=== PATIENT | male | born 1965 | race Caucasian/White ===

== ENCOUNTER 2022-02-10 09:23 | Emergency (ER) | payer OTHER, SELFPAY ==
[2022-02-10 09:42] VITALS: BP 174/140; PULSE 76; RESP 18; TEMP 36.8; O2SAT 98; BMI 33.6
--- NOTE | 2022-02-10 09:55 | USCV_ITS ---
Rell Viveros Age: 56 Gender: M : 1965 Exam Date: 02/10/2022 10:41 Ordering Phys: Edilson Morales Technologist: Otoniel Louis [place] [facility] [place]: [place] PROCEDURES: The venous duplex Doppler examination of both lower extremities was performed in the standard fashion. The following venous structures were evaluated: common femoral vein, profunda vein, proximal portion of the greater saphenous vein, superficial femoral vein, and the popliteal vein. In addition, the posterior tibial and peroneal trunk were evaluated. FINDINGS: Normal 2-D Doppler and augmentation and compressibility throughout the lower extremity venous structures. Additional imaging through the proximal calf veins also reveals no thrombus. Limited evaluation of the greater saphenous vein is patent with no thrombus.. CONCLUSIONS No evidence of right lower extremity DVT. No evidence of left lower extremity DVT. Nathaniel Ennis MD (Electronically Signed) Final Date: 10 Feb 2022 16:09 S
--- NOTE | 2022-02-10 09:55 | USR_ITS ---
PROCEDURE INFORMATION: Exam: US Duplex Lower Extremity Arteries Exam date and time: 02/10/2022 10:50 AM Age: 56 years old Clinical indication: Pain; Leg, lower; Bilateral; Additional info: Bilateral leg pain. Worsens with ambulation TECHNIQUE: Imaging protocol: Real-time ultrasound scan of the arteries of the bilateral lower extremities with 2-D levin scale, color Doppler flow and spectral waveform analysis. Images documented and saved. COMPARISON: No relevant prior studies available. FINDINGS: Right common femoral artery: No occlusion or significant stenosis. Normal waveform. Right superficial femoral artery: No occlusion or significant stenosis. Normal waveform. Right popliteal artery: No occlusion or significant stenosis. Normal waveform. Right calf/foot arteries: No occlusion or significant stenosis in the visualized arteries. Normal waveforms. Dorsalis pedis artery is patent. Left common femoral artery: No occlusion or significant stenosis. Normal waveform. Left superficial femoral artery: No occlusion or significant stenosis. Normal waveform. Left popliteal artery: No occlusion or significant stenosis. Normal waveform. Left calf/foot arteries: No occlusion or significant stenosis in the visualized arteries. Normal waveforms. Dorsalis pedis artery is patent. US/CV arterial duplex [facility] [id number] IMPRESSION: No stenosis or occlusion.
--- NOTE | 2022-02-10 10:03 | W.ED.EXTPRO ---
Documented by User: [email or web address] Whyte 02/10/22 12:00 HPI - Extremity Problem General: Chief complaint: Extremity Injury, Lower Stated complaint: doc sent over for possible blood clots both legs Time Seen by Provider: 02/10/22 09:26 History of Present Illness: Patient is a 56-year-old male who comes to the ED with bilateral leg pain. Symptoms have been going on now for over 6 months. He states his bilateral leg pain worsens when he is up and ambulating or working throughout the day. His symptoms improve when he is sitting or laying down at rest. His primary care physician is currently in the process of referring him to a vascular surgeon due to possible peripheral vascular disease to lower extremities. Patient is not on a daily blood thinner and just takes a baby aspirin daily. Denies any chest pain, shortness of breath, lower extremity edema, lower extremity erythema. Associated symptoms: Deny chest pain, fever(s) or rash Review of Systems Const: Denies: fever(s), chills or fatigue Eyes: Denies: change in vision or eye discomfort ENMT: Denies: throat pain, odynophagia, nasal discharge or nasal congestion Card: Denies: chest pain, palpitations, edema, swelling of feet/ankles, dyspnea on exertion or orthopnea Resp: Denies: dyspnea, productive cough or non-productive cough GI: Denies: abdominal pain, nausea, vomiting, diarrhea, constipation or hematochezia : Denies: flank pain, difficulty urinating, dysuria or hematuria Musc: Reports: extremity pain (Bilateral lower extremity pain); Denies: neck pain, back pain or extremity swelling Skin/Breast: Denies: rash or new lesions Neuro: Denies: headache(s), numbness in extremities or weakness in extremities [facility] ED PFSH: Medical History No pertinent family history Surgical History No pertinent past surgical history Physical Exam Const: COMMON NORMALS: patient oriented x3 and alert GENERAL APPEARANCE: cooperative HENMT: COMMON NORMALS: normocephalic HEAD & SCALP: normocephalic MOUTH: Normal oral and palatal mucosa present THROAT: posterior oropharynx normal and uvula midline Neck/C-Spine: COMMON NORMALS: supple GENERAL: Yes normal visual inspection Resp: COMMON NORMALS: normal respiratory effort, No retractions, No use of accessory muscles and clear to auscultation bilaterally AUSCULTATION: clear to auscultation bilaterally Cardio: COMMON NORMALS: regular rate, regular rhythm, S1 normal heart sound present, S2 normal heart sound present, No gallops present (Cardio), No clicks present (Cardio) and No murmurs present (Cardio) RATE: regular rate RHYTHM: regular rhythm HEART SOUNDS: S1 normal heart sound present and S2 normal heart sound present PERIPHERAL PULSES: dorsalis pedis present positive right 1+ and positive left 1+ OTHER: Radial pulse 2+ bilaterally. GI: COMMON NORMALS: Normal to inspection, nondistended, normoactive bowel sounds present, Soft to palpation, non-tender and no masses PALPATION: Yes Soft to palpation : COMMON NORMALS: Yes no CVA tenderness BLADDER/KIDNEY EXAM: Yes no CVA tenderness Back/Pelvis: COMMON NORMALS: no CVA tenderness Extremity: NARRATIVE EXTREMITY EXAM: Bilateral lower extremities?no erythema, warmth or swelling noted. Right dorsalis pedis pulse 1+ and left dorsalis pedis pulse was 1+. Neuro: COMMON NORMALS: patient oriented x3 and moves all extremities SENSORIUM/ORIENTATION: Yes alert Skin: GENERAL SKIN EXAM: dry skin Course Vital Signs: Vital signs: Vital Signs Temperature 98.2 F 02/10/22 09:42 Pulse Rate 75 02/10/22 12:24 Respiratory Rate 15 02/10/22 12:24 Blood Pressure 144/93 02/10/22 12:24 Pulse Oximetry 96 02/10/22 12:24 MDM - Extremity (Nontraumatic) Medical Decision Making Patient is a 56-year-old male comes to the ED with bilateral lower extremity pain. Symptoms been going on now for the past 6 weeks but they have gotten worse over the last week. Pain worsens with ambulation and movement and improves at rest. PCP centimeters to the ED for concern of DVT or arterial leg flow obstruction. Vitals are stable. Patient has 1+ dorsal pedis pulse bilaterally and No pitting edema noted in lower extremities. the rest of exam is benign. CBC and CMP were unremarkable. Ultrasound venous duplex of lower extremities bilaterally showed no DVTs. Ultrasound duplex lower extremity arteries bilateral scan showed no stenosis or occlusion. Patient diagnosed with bilateral leg pain and told to follow-up with his PCP at his next scheduled appointment for further evaluation. Return to ED precautions given. Patient understood and agreed with plan. Lab Data I reviewed the patient's lab results. : 02/10/22 10:24 02/10/22 10:24 Radiology Impressions Duplex Scan Lower Extremity Artery 02/10/22 09:55 IMPRESSION: No stenosis or occlusion. Laboratory Results WBC 5.5 10^3/uL (4.0-10.0) 02/10/22 10:24 RBC 4.45 10^6/uL (4.1-5.3) 02/10/22 10:24 Hgb 14.2 g/dL (11.7-16.6) 02/10/22 10:24 Hct 42.4 % (42.0-52.0) 02/10/22 10:24 MCV 95.3 fl (80-94) H 02/10/22 10:24 MCH 31.9 pg (28.0-34.0) 02/10/22 10:24 MCHC 33.5 g/dL (30.0-36.0) 02/10/22 10:24 RDW 12.3 % (12.1-15.1) 02/10/22 10:24 Plt Count 248 10^3/cmm (130-400) 02/10/22 10:24 MPV 10.1 fL (7.4-10.4) 02/10/22 10:24 Neut % (Auto) 65.1 % 02/10/22 10:24 Lymph % (Auto) 22.4 % 02/10/22 10:24 Owen % (Auto) 8.7 % 02/10/22 10:24 Eos % (Auto) 2.7 % 02/10/22 10:24 Baso % (Auto) 0.9 % 02/10/22 10:24 Neut # (Auto) 3.60 10^3/uL (1.8-7.7) 02/10/22 10:24 Lymph # (Auto) 1.2 10^3/uL (0.8-4.8) 02/10/22 10:24 Owen # (Auto) 0.5 10^3/uL (0.2-0.9) 02/10/22 10:24 Eos # (Auto) 0.2 10^3/uL (0.0-0.8) 02/10/22 10:24 Baso # (Auto) 0.1 10^3/uL (0.0-0.1) 02/10/22 10:24 Nucleated RBC % (auto) 0 % 02/10/22 10:24 Nucleated RBCs # 0.0 /100WBC 02/10/22 10:24 Sodium 140 mmol/L (136-145) 02/10/22 10:24 Potassium 4.3 mmol/L (3.5-5.1) 02/10/22 10:24 Chloride 103 mmol/L (98-107) 02/10/22 10:24 Carbon Dioxide 27 mmol/L (22-29) 02/10/22 10:24 Anion Gap 14.3 (5-19) 02/10/22 10:24 BUN 17 mg/dL (6-20) 02/10/22 10:24 Creatinine 1.1 mg/dL (0.7-1.2) 02/10/22 10:24 GFR Calculation 69.8 mL/min (90-130) L 02/10/22 10:24 Glucose 107 mg/dL (65-115) 02/10/22 10:24 Calculated Osmolality 292 mOsm/kg (285-295) 02/10/22 10:24 Calcium 10.0 mg/dL (8.5-10.5) 02/10/22 10:24 Total Bilirubin 0.5 mg/dL (0.15-1.2) 02/10/22 10:24 AST 19 U/L (0-40) 02/10/22 10:24 ALT 12 U/L (0-41) 02/10/22 10:24 Alkaline Phosphatase 100 IU/L (40-130) 02/10/22 10:24 Total Protein 7.1 g/dL (6.6-8.7) 02/10/22 10:24 Albumin 4.9 g/dL (3.5-5.2) 02/10/22 10:24 Globulin 2.2 g/dL (1.3-4.6) 02/10/22 10:24 Discharge Plan Discharge Patient Disposition: Home Clinical Impression: Bilateral leg pain Condition: Stable Discharge Orders: Discharge ED (Routine); Ordered 02/10/22 Ordered By: Edilson Morales Discharge Diet: Regular Discharge Activity: Increase activity as tolerated Activity Restrictions/Additional Instructions: Follow-up with medical provider as directed at your next scheduled appointment for further evaluation and follow-up. Continue taking all home medications as previously prescribed. Return to the ER or your medical provider if condition worsens. Please read and understand discharge instructions. Thank you for choosing [facility] for your healthcare needs today. Please realize this is an emergency room and that we are providing you with a medical screening exam and this may not be complete and all inclusive of all the testing and or work up that you may need to determine your ailment or severity of your illness. It is very important that you follow up as instructed or that you return to the Emergency Department should you have concerns or if your condition changes or worsens in any way. Coding Level of Care Code ED Eth[employer]per for Chg Fwd Exam Comprehensive Documented by User: Rom Hollis DO 02/10/22 13:41 HPI - Extremity Problem General: Chief complaint: Extremity Injury, Lower Stated complaint: doc sent over for possible blood clots both legs Time Seen by Provider: 02/10/22 09:26 [facility] ED PFSH: Medical History No pertinent family history Surgical History No pertinent past surgical history Course Vital Signs: Vital signs: Vital Signs Temperature 98.2 F 02/10/22 09:42 Pulse Rate 75 02/10/22 12:24 Respiratory Rate 15 02/10/22 12:24 Blood Pressure 144/93 02/10/22 12:24 Pulse Oximetry 96 02/10/22 12:24 MDM - Extremity (Nontraumatic) Medical Decision Making Patient is a 56-year-old male comes to the ED with bilateral lower extremity pain. Symptoms been going on now for the past 6 weeks but they have gotten worse over the last week. Pain worsens with ambulation and movement and improves at rest. PCP centimeters to the ED for concern of DVT or arterial leg flow obstruction. Vitals are stable. Patient has 1+ dorsal pedis pulse bilaterally and No pitting edema noted in lower extremities. the rest of exam is benign. CBC and CMP were unremarkable. Ultrasound venous duplex of lower extremities bilaterally showed no DVTs. Ultrasound duplex lower extremity arteries bilateral scan showed no stenosis or occlusion. Patient diagnosed with bilateral leg pain and told to follow-up with his PCP at his next scheduled appointment for further evaluation. Return to ED precautions given. Patient understood and agreed with plan. Chart reviewed and patient discussed with midlevel. Agree with assessment and plan. Lab Data : 02/10/22 10:24 02/10/22 10:24 Radiology Impressions Duplex Scan Lower Extremity Artery 02/10/22 09:55 IMPRESSION: No stenosis or occlusion. Laboratory Results WBC 5.5 10^3/uL (4.0-10.0) 02/10/22 10:24 RBC 4.45 10^6/uL (4.1-5.3) 02/10/22 10:24 Hgb 14.2 g/dL (11.7-16.6) 02/10/22 10:24 Hct 42.4 % (42.0-52.0) 02/10/22 10:24 MCV 95.3 fl (80-94) H 02/10/22 10:24 MCH 31.9 pg (28.0-34.0) 02/10/22 10:24 MCHC 33.5 g/dL (30.0-36.0) 02/10/22 10:24 RDW 12.3 % (12.1-15.1) 02/10/22 10:24 Plt Count 248 10^3/cmm (130-400) 02/10/22 10:24 MPV 10.1 fL (7.4-10.4) 02/10/22 10:24 Neut % (Auto) 65.1 % 02/10/22 10:24 Lymph % (Auto) 22.4 % 02/10/22 10:24 Owen % (Auto) 8.7 % 02/10/22 10:24 Eos % (Auto) 2.7 % 02/10/22 10:24 Baso % (Auto) 0.9 % 02/10/22 10:24 Neut # (Auto) 3.60 10^3/uL (1.8-7.7) 02/10/22 10:24 Lymph # (Auto) 1.2 10^3/uL (0.8-4.8) 02/10/22 10:24 Owen # (Auto) 0.5 10^3/uL (0.2-0.9) 02/10/22 10:24 Eos # (Auto) 0.2 10^3/uL (0.0-0.8) 02/10/22 10:24 Baso # (Auto) 0.1 10^3/uL (0.0-0.1) 02/10/22 10:24 Nucleated RBC % (auto) 0 % 02/10/22 10:24 Nucleated RBCs # 0.0 /100WBC 02/10/22 10:24 Sodium 140 mmol/L (136-145) 02/10/22 10:24 Potassium 4.3 mmol/L (3.5-5.1) 02/10/22 10:24 Chloride 103 mmol/L (98-107) 02/10/22 10:24 Carbon Dioxide 27 mmol/L (22-29) 02/10/22 10:24 Anion Gap 14.3 (5-19) 02/10/22 10:24 BUN 17 mg/dL (6-20) 02/10/22 10:24 Creatinine 1.1 mg/dL (0.7-1.2) 02/10/22 10:24 GFR Calculation 69.8 mL/min (90-130) L 02/10/22 10:24 Glucose 107 mg/dL (65-115) 02/10/22 10:24 Calculated Osmolality 292 mOsm/kg (285-295) 02/10/22 10:24 Calcium 10.0 mg/dL (8.5-10.5) 02/10/22 10:24 Total Bilirubin 0.5 mg/dL (0.15-1.2) 02/10/22 10:24 AST 19 U/L (0-40) 02/10/22 10:24 ALT 12 U/L (0-41) 02/10/22 10:24 Alkaline Phosphatase 100 IU/L (40-130) 02/10/22 10:24 Total Protein 7.1 g/dL (6.6-8.7) 02/10/22 10:24 Albumin 4.9 g/dL (3.5-5.2) 02/10/22 10:24 Globulin 2.2 g/dL (1.3-4.6) 02/10/22 10:24 Discharge Plan Discharge Patient Disposition: Home Clinical Impression: Bilateral leg pain Condition: Stable Discharge Orders: Discharge ED (Routine); Ordered 02/10/22 Ordered By: Edilson Morales Discharge Diet: Regular Discharge Activity: Increase activity as tolerated Activity Restrictions/Additional Instructions: Follow-up with medical provider as directed at your next scheduled appointment for further evaluation and follow-up. Continue taking all home medications as previously prescribed. Return to the ER or your medical provider if condition worsens. Please read and understand discharge instructions. Thank you for choosing [facility] for your healthcare needs today. Please realize this is an emergency room and that we are providing you with a medical screening exam and this may not be complete and all inclusive of all the testing and or work up that you may need to determine your ailment or severity of your illness. It is very important that you follow up as instructed or that you return to the Emergency Department should you have concerns or if your condition changes or worsens in any way. Coding Level of Care Code ED Eth[employer] for Jenna Fwd Exam Comprehensive
[2022-02-10 10:30] LABS: Basophils # 0.1 10^3/uL (0.0-0.1); Basophils % 0.9 %; Eosinophils # 0.2 10^3/uL (0.0-0.8); Eosinophils % 2.7 %; Hematocrit 42.4 % (42.0-52.0); Hemoglobin 14.2 g/dL (11.7-16.6); Lymphocytes # 1.2 10^3/uL (0.8-4.8); Lymphocytes % 22.4 %; Mean Corpuscular HGB Conc 33.5 g/dL (30.0-36.0); Mean Corpuscular Hemoglobin 31.9 pg (28.0-34.0); Mean Corpuscular Volume 95.3 fl (80-94); Mean Platelet Volume 10.1 fL (7.4-10.4); Monocytes # 0.5 10^3/uL (0.2-0.9); Monocytes % 8.7 %; Neutrophils % 65.1 %; Nucleated Red Blood Cells % 0 %; Platelet Count 248 10^3/cmm (130-400); Red Blood Count 4.45 10^6/uL (4.1-5.3); Red Cell Distribution Width 12.3 % (12.1-15.1); White Blood Count 5.5 10^3/uL (4.0-10.0)
[2022-02-10 10:53] LABS: Alanine Aminotransferase 12 U/L (0-41); Albumin Level 4.9 g/dL (3.5-5.2); Alkaline Phosphatase 100 IU/L (40-130); Anion Gap 14.3 (5-19); Aspartate Amino Transferase 19 U/L (0-40); Blood Urea Nitrogen 17 mg/dL (6-20); Carbon Dioxide 27 mmol/L (22-29); Chloride 103 mmol/L (98-107); Globulin 2.2 g/dL (1.3-4.6); Glomerular Filtration Rate 69.8 mL/min (90-130); Glucose 107 mg/dL (65-115); Osmolality Calculated 292 mOsm/kg (285-295); Potassium 4.3 mmol/L (3.5-5.1); Sodium 140 mmol/L (136-145); Total Bilirubin 0.5 mg/dL (0.15-1.2); Total Protein 7.1 g/dL (6.6-8.7)
[2022-02-10 12:24] VITALS: BP 144/93; PULSE 75; RESP 15; O2SAT 96
== END 2022-02-10 12:25 | disposition home or self-care (01) ==
PROVIDERS: Emergency Provider Physician Assistant
DX: M79.605 Pain in left leg (principal); M79.604 Pain in right leg
CPT/HCPCS: 80053; 85025; 93925; 93970; 99283

== ENCOUNTER 2023-02-20 09:11 | Outpatient (CLI) | payer OTHER, SELFPAY ==
--- NOTE | 2023-02-20 09:59 | XRR_ITS ---
PROCEDURE INFORMATION: Exam: XR Left Knee Exam date and time: 02/20/2023 10:01 AM Age: 57 years old Clinical indication: Pain; Prior surgery; Surgery date: 1-6 months; Surgery type: Orthoscopic left knee; Additional info: L knee pain TECHNIQUE: Imaging protocol: Radiologic exam of the left knee. Views: 3 views. COMPARISON: No relevant prior studies available. FINDINGS: Bones/joints: Alignment is normal. There is mild medial compartment joint space narrowing. There is slight medial subluxation of the femur relative to the tibia. There is a small lateral femoral osteophyte. There is a vertical lucency through patella visible on the frontal view. The patella is unremarkable on other views. There are medial and lateral femorotibial osteophytes. No visible joint effusion. Soft tissues: Normal. XR/XR knee LT 3V* [id number] IMPRESSION: 1. Question nondisplaced patellar fracture. Correlate with physical exam findings. 2. No joint effusion. 3. 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
== END 2023-02-20 09:12 | disposition home or self-care (01) ==
PROVIDERS: PCP Nurse Practitioner Family; Visit Provider Nurse Practitioner Family
DX: M17.12 Unilateral primary osteoarthritis, left knee (principal)
CPT/HCPCS: 73562